=== PATIENT | female | born 1985 | race Caucasian/White ===

== ENCOUNTER → 2018-06-11 | Outpatient (CLI) | payer OTHER ==
[2018-06-08 15:38] VITALS: BMI 22.4
[2018-06-11 12:00] VITALS: BP 115/60; PULSE 53; RESP 16
--- NOTE | 2018-06-12 09:53 | P.PAINCN ---
History of Present Illness - Reason for Consult Consult date: 06/11/18 - History of Present Illness This is a 33 years old female with a chronic history of severe neck pain and headache, started 7 years ago, she denies any initiating event, and she reported the intensity of the headache increases significantly over the last 1 year, there is no specific triggering factors to initiate the headache, but there is no specific time of the day to trigger the headache, the headache associated with nausea and dizziness, patient diagnosed with occipital neuralgia and she was referred by Dr. Plasencia , to have occipital nerve block, patient currently on multiple medications for migraine headache, Imitrex, Fioricet ,inderal and magnesium oxide, and she continues to have frequent episodes of headache, she denies any motor or sensory deficit, she denies any fever or night sweats Past Medical History Additional Past Medical History / Comment(s): miograines, high blood pressure during 2 pregancies, occipital headaches, History of Any Multi-Drug Resistant Organisms: None Reported Past Surgical History: No Surgical Hx Reported Past Anesthesia/Blood Transfusion Reactions: Motion Sickness Additional Past Anesthesia/Blood Transfusion Reaction / Comm: never had anesthesia Past Psychological History: Anxiety, Depression Smoking Status: Current every day smoker Past Alcohol Use History: Occasional Additional Past Alcohol Use History / Comment(s): smokes 1 PPD for 15 yrs Past Drug Use History: None Reported - Past Family History Mother Family Medical History: Cancer Medications and Allergies Home Medications Medication Instructions Recorded Confirmed Type Butalb/Asprin/Caff 50-325-40Mg 1 - 2 cap PO Q6HR PRN 06/08/18 06/11/18 History [Fiorinal 50-325-40 MG] Cholecalciferol [Vitamin D3] 5,000 unit PO DAILY 06/08/18 06/11/18 History Citalopram Hydrobromide 10 mg PO DAILY 06/08/18 06/11/18 History [Citalopram HBr] Citalopram Hydrobromide 20 mg PO DAILY 06/08/18 06/11/18 History [Citalopram HBr] Cyanocobalamin (Vitamin B-12) 1,000 mcg PO DAILY 06/08/18 06/11/18 History [Vitamin B-12] Diazepam [Valium] 5 mg PO Q8HR PRN 06/08/18 06/11/18 History Magnesium Oxide [Mag-Ox] 250 mg PO BID 06/08/18 06/11/18 History Ondansetron HCl [Zofran] 4 mg PO Q8HR PRN 06/08/18 06/11/18 History Propranolol HCl [Inderal Xl] 80 mg PO BID 06/08/18 06/11/18 History SUMAtriptan SUCCINATE [Imitrex] 50 mg PO DIRECTED PRN 06/08/18 06/11/18 History Allergies Allergy/AdvReac Type Severity Reaction Status Date / Time No Known Allergies Allergy Verified 06/11/18 11:46 Physical Exam Vitals: Vital Signs Pulse Resp BP Pulse Ox 06/11/18 11:48 53 L 16 115/60 97 Social history : smoker , NO ETOH , NO Illegal drugs use . Review of Systems : 1- Constitutional : no chills , no fever , no night sweats , 2- Ears : no ear discharge , no change in hearing 3-Nose, Mouth ,Throat ; no bleeding gums, no sore throat , no epistaxis , 4-Cardiovascular : Denies chest pain, , no orthopnea , no palpitation 5-Respiratory : Denies cough , no dyspnea , no hemoptysis 6-Gastrointestinal :, no change in bowel habits , no coffee- ground emesis . 7-Genitourinary : No hematuria , no discharge , no incontinence, 8-Musculoskeletal : No gait dysfunction , report low back pain , 9- Neurological : no ataxia , no tremor , no sezure , 10-Psychatric , no suicidal ideation no hallucination 11- Endocrine : no cold intolerence , no polyuria , no polydypsia , 12-Hematologic : no easy bleeding , no easy brusing , 13-Allergic / immunology : no angioedema , no wheezing ,no allergic rhinitis 14-Integumentary : no brttle nails , no change hair / nails , no foot/leg ulcers . Physical Examinations : 1-Constitutional : Cooperative , not in acute distress . 2-HEENT : nech ; supple , no Lymphadenopathy , no Thyromegaly , :eyes , no icterus, no photophobia . ENT : , normal oropharynx , no Thrush 3- Respiratory : Chest clear to auscultations Bilaterally , no wheezing . 4- Cardiovascular : regular rate and rhythem , S1 , S2 , no S3 , no S4. 5- Gastrointestinal: abdomen soft no tenderness , no organomegally . 6- Genitourinary : Defferred . 7-Integumentary : No cellulitis , no ulcers , normal skin turgor , no cyanotic . 8- neurologic : Cranial nerve II to XII intact , no focal neurological deffecit 9-psychatric : alert , oriented X 3 , appropriate affect , intact judgment and insight . 10-Lymphatic : no Lymphadenopathy. 11- musculoskeltal: normal gait Cervical Spine motor stregnth in the deltoid and biceps, normal right side , normal Left side motor stregnth biceps and the wrist extensors normal right side ,normal left side . motor stregnth in the triceps muscle . normal Right side , normal Left side deep tendon reflexes normal at the biceps , normal at Brachioradialis , normal at triceps. positive cervical facet loading test . Severe tenderness over the occipital nerves bilaterally Lumber spine moter stegnth lower extremities ,thigh and legs 5/5 Right side , 5/5 Left side Results Comments: MRI of the brain reviewed Assessment and Plan Plan: Assessment and plan=1-bilateral occipital neuralgia. 2-cervical spondylosis ( clinical ), No computed tomography scan of MRI of the cervical spine available. she will be scheduled to have bilateral occipital nerve block, procedure risk and benefits and alternatives discussed with the patient she agreed with the preceding Time with Patient: Greater than 30 PQRS Measure Charge Sheet Measure #130: Documentation of Current Meds in Medical Chart: Patient's medications documented in chart Measure #226: Tobacco Use: Screen & Cessation Intervention: Pt screened for tobacco use AND intervention given Measure #111: Pneumonia Vaccination: Pneumococcal vaccine NOT administered or previously given Measure #47: Advance Care Plan: Advance care planning discussed & documented, pt chose/unable to give Measure #412: Opioid Treatment Agreement: No documentation of signed opioid treatment agreement Measure #408: Opioid Therapy Follow-up Evaluation: Patient had NO f/u eval minimum every 3 months during opioid therapy Measure #317: Preventitive Care & Scrn High Bld Press & F/U: Normal blood pressure, f/u not required Measure #128: Body Mass Index (BMI) Screening & Follow-up: BMI documented within normal parameters Measure #131: Pain Assessment & Follow-up: Pain positive & plan documented, Follow-up scheduled Measure #431: Unhealthy Alcohol Use Preventative Care & Scrn: Patient not identified as an unhealthy alcohol user PQRS Narrative: Smoking Status Current every day smoker Do You Want the Pneumonia No Vaccine AT THIS TIME? Blood Pressure 115/60 Pain Intensity [Bilateral 4 Posterior Neck] Scale Used Numeric (1 - 10) Hx Alcohol Use (MH) No Home Medications: Ambulatory Orders Butalb/Asprin/Caff 50-325-40Mg [Fiorinal 50-325-40 MG] 1 - 2 cap PO Q6HR PRN Cholecalciferol [Vitamin D3] 5,000 unit PO DAILY 06/08/18 Citalopram Hydrobromide [Citalopram HBr] 10 mg PO DAILY 06/08/18 Citalopram Hydrobromide [Citalopram HBr] 20 mg PO DAILY 06/08/18 Cyanocobalamin (Vitamin B-12) [Vitamin B-12] 1,000 mcg PO DAILY 06/08/18 Diazepam [Valium] 5 mg PO Q8HR PRN 06/08/18 Magnesium Oxide [Mag-Ox] 250 mg PO BID 06/08/18 Ondansetron HCl [Zofran] 4 mg PO Q8HR PRN 06/08/18 Propranolol HCl [Inderal Xl] 80 mg PO BID 06/08/18 SUMAtriptan SUCCINATE [Imitrex] 50 mg PO DIRECTED PRN 06/08/18
== END | disposition home or self-care (01) ==
LOC: PNWHC3 11:33
PROVIDERS: ATTEND Specialist
DX: G89.29 Other chronic pain (principal); M54.2 Cervicalgia; R51 Headache; M54.81 Occipital neuralgia; M47.812 Spondylosis without myelopathy or radiculopathy, cervical region; F41.9 Anxiety disorder, unspecified; F32.9 Major depressive disorder, single episode, unspecified; F17.210 Nicotine dependence, cigarettes, uncomplicated; Z79.82 Long term (current) use of aspirin; Z79.899 Other long term (current) drug therapy; Z71.6 Tobacco abuse counseling
CPT/HCPCS: 99211

== ENCOUNTER → 2018-06-29 | Day surgery (SDC) | payer OTHER ==
[2018-06-24 09:23] VITALS: BMI 22.3
[~2018-06-29] MED LIST: SODIUM CHLORIDE 0.9% 500 ML 500 ML IV ONE
[2018-06-29 09:40] VITALS: RESP 18; TEMP 98.4
--- NOTE | 2018-06-29 10:35 | P.PCN ---
Date of Procedure: 06/29/18 Procedure(s) Performed: Pre-operative diagnosis: 1- Bilateral occipital neuralgea Post Operative Diagnosis 1- Bilateral occipital neuralgea Procedure: 1- Bilateral occipital nerve block under ultrasound ANESTHESIA: Conscious sedation with Versed 2mg EBL: none PROCEDURE INDICATION: The patient with neck pain and headache secondary to occipital neuralgea unresponsive to conservative treatments. PROCEDURE DESCRIPTION / TECHNIQUE: The patient was seen and identified in the preoperative area. Risks, benefits, complications, and alternatives were discussed with the patient, the patient agreed to proceed with the procedure and signed the consent. IV was started. Vital signs remained stable throughout the procedure. Patient was taken to the OR and time out was completed. The patient was placed in the prone position on the procedure table. A pillow was placed under the patients chest to increase the cervical interlaminar space. The cervical area and right occiptial area were prepped with alcohol swab. Critical pause was taken. Vital signs were closely monitored during the procedure. Conscious sedation was used during the procedure to decrease patients anxiety. Ultrasound was used and the occipital artery was visualized exiting the skull about 2-3 cm lateral and 2cm inferior to the occipital protuberance, Then after negative aspiration, a 25g needed was introduced under ultrasound, negative aspiration confirmed and then 3 ml of the block solution containing 2.5 ml of PF Bupivacaine 0.5% and dexamethasone 5mg mg was injected. Needle was withdrawn intact. Then the same procedure was repeated on the left side with same medications as the right side. Patient tolerated procedure well. No acute complications.
[2018-06-29 11:08] VITALS: BP 112/72; PULSE 58
== END ==
LOC: ORPAIN 09:14
PROVIDERS: ATTEND Hospitalist
DX: M54.81 Occipital neuralgia (principal)
CPT/HCPCS: 64405; J2250; J1100; 99152

== ENCOUNTER → 2018-10-27 | Outpatient (CLI) | payer OTHER ==
[2018-10-27 12:02] VITALS: BP 125/71; PULSE 55; RESP 18; TEMP 98.1
--- NOTE | 2018-10-28 08:50 | P.PAINPG ---
Subjective Progress Note Date: 10/28/18 This is a 33 years old female with a chronic history of severe neck pain and headache, started 7 years ago, she denies any initiating event, and she reported the intensity of the headache increases significantly over the last 1 year, there is no specific triggering factors to initiate the headache, but there is no specific time of the day to trigger the headache, the headache associated with nausea and dizziness, patient diagnosed with occipital neuralgia and she was referred by Dr. Plasencia , to have occipital nerve block, patient currently on multiple medications for migraine headache, Imitrex, Fioricet ,inderal and magnesium oxide, and she continues to have frequent episodes of headache, she denies any motor or sensory deficit, she denies any fever or night sweats, she is diagnosed with occipital neuralgia and cervical spondylosis, previously we have done occipital nerve blocks bilaterally, she'll get short-term benefit from it, and she is here for follow-up visit and reevaluation after the procedure - Physical Examinations : -Constitutional : Cooperative , not in acute distress . -HEENT : nech ; supple , no Lymphadenopathy , no Thyromegaly , :eyes , no icterus, no photophobia . - musculoskeltal: normal gait Cervical Spine motor stregnth in the deltoid and biceps, normal right side , normal Left side motor stregnth biceps and the wrist extensors normal right side ,normal left side . motor stregnth in the triceps muscle . normal Right side , normal Left side deep tendon reflexes normal at the biceps , normal at Brachioradialis , normal at triceps. positive cervical facet loading test . Severe tenderness over the occipital nerves bilaterally Lumber spine moter stegnth lower extremities ,thigh and legs 5/5 Right side , 5/5 Left side Results Comments: MRI of the brain reviewed Assessment and plan=1-bilateral occipital neuralgia. 2-cervical spondylosis ( clinical ), No computed tomography scan of MRI of the cervical spine available. Patient benefited from bilateral occipital nerve block we will repeat the block, and also we will order MRI of the cervical spine In the future we can consider doing bilateral medial branch block at C2, C3 , and third occipital nerve block , and possible radiofrequency ablation - PQRS measures = - Patient's medications are documented in the chart. -Tobacco use is positive ,and counseling.Given. -Patient's has not received pneumococcal vaccine. -Advanced care planning discussed, patient not eligible. -Opiate contract not signed. -Pain positive and follow-up visit/procedure is scheduled. -Patient's blood pressure measured [ 125/71 ] , and documented in the record ,and patient will follow up with the primary care. -Patient's weight was measured and body mass index [ 22.3 ],within the normal limits and counseling was done. and patient instructed to follow-up with the primary care physician. -Patient was not identified as an unhealthy alcohol user Objective - Vital Signs Vital signs: Vital Signs Temp 98.1 F 10/27/18 11:56 Pulse 55 L 10/27/18 11:56 Resp 18 10/27/18 11:56 BP 125/71 10/27/18 11:56 Pulse Ox Intake & Output 10/27/18 10/28/18 10/28/18 18:59 06:59 18:59 Weight 58.967 kg PQRS Measure Charge Sheet Measure #130: Documentation of Current Meds in Medical Chart: Patient's medications documented in chart Measure #226: Tobacco Use: Screen & Cessation Intervention: Pt screened for tobacco use AND intervention given Measure #111: Pneumonia Vaccination: Pneumococcal vaccine NOT administered or previously given Measure #47: Advance Care Plan: Advance care planning discussed & documented, pt chose/unable to give Measure #412: Opioid Treatment Agreement: No documentation of signed opioid treatment agreement Measure #408: Opioid Therapy Follow-up Evaluation: Patient had NO f/u eval minimum every 3 months during opioid therapy Measure #317: Preventitive Care & Scrn High Bld Press & F/U: Normal blood pressure, f/u not required Measure #128: Body Mass Index (BMI) Screening & Follow-up: BMI documented within normal parameters Measure #131: Pain Assessment & Follow-up: Pain positive & plan documented Measure #431: Unhealthy Alcohol Use Preventative Care & Scrn: Patient not identified as an unhealthy alcohol user PQRS Narrative: Smoking Status Current every day smoker Do You Want the Pneumonia No Vaccine AT THIS TIME? Blood Pressure 125/71 Pain Intensity [Head] 4 Hx Alcohol Use (MH) No Home Medications: Ambulatory Orders Butalb/Asprin/Caff 50-325-40Mg [Fiorinal 50-325-40 MG] 1 - 2 cap PO Q6HR PRN Cholecalciferol [Vitamin D3] 5,000 unit PO DAILY 06/08/18 Citalopram Hydrobromide [Citalopram HBr] 10 mg PO DAILY 06/08/18 Citalopram Hydrobromide [Citalopram HBr] 20 mg PO DAILY 06/08/18 Cyanocobalamin (Vitamin B-12) [Vitamin B-12] 1,000 mcg PO DAILY 06/08/18 Magnesium Oxide [Mag-Ox] 250 mg PO BID 06/08/18 Ondansetron HCl [Zofran] 4 mg PO Q8HR PRN 06/08/18 Propranolol HCl [Inderal Xl] 80 mg PO BID 06/08/18 SUMAtriptan SUCCINATE [Imitrex] 50 mg PO DIRECTED PRN 06/08/18 Controlled Substance Measures - Controlled Substance Measures Is patient prescribed a controlled substance at discharge?: No
== END | disposition home or self-care (01) ==
LOC: PNWHC3 11:38
PROVIDERS: ATTEND Specialist
DX: G89.29 Other chronic pain (principal); M47.812 Spondylosis without myelopathy or radiculopathy, cervical region; M54.81 Occipital neuralgia; F17.200 Nicotine dependence, unspecified, uncomplicated; Z79.899 Other long term (current) drug therapy; Z79.82 Long term (current) use of aspirin
CPT/HCPCS: 99211

== ENCOUNTER 2018-11-04 06:26 | Day surgery (SDC) | payer OTHER ==
[2018-10-30 10:51] VITALS: BMI 22.3
[~2018-11-04 06:26] MED LIST changes: -SODIUM CHLORIDE 0.9% 500 ML 500 ML IV ONE; +SODIUM CHLORIDE 0.9% 500 ML 500 ML IV SCH
[2018-11-04 06:58] VITALS: RESP 16; TEMP 98.8
[2018-11-04] MEDS ORDERED: LIDOCAINE 1% 20 ML VIAL (10MG/ML) FOR IV START INTRADERMA ONE (07:03)
[2018-11-04] MEDS ORDERED: LACTATED RINGERS 1,000 ML IV ONE (07:03)
--- NOTE | 2018-11-04 08:01 | P.PCN ---
Date of Procedure: 11/04/18 Procedure(s) Performed: Preoperative diagnoses= 1-Bilateral occipital neuralgia. 2-cervical spondyl osis Postoperative diagnoses= same as preoperative diagnosis. Procedure= Bilateral Greater occipital nerve block Anesthesia= none. Estimated blood loss=minimal. Procedure indication= the patient had a history of severe chronic neck pain ,and headache, diagnosed with occipital neuralgia exam was positive for severe tenderness over the occipital nerve bilaterally, she will be a good candidate o ccipital nerve block, patient failed conservative management Procedure description= the patient was seen and identified in the preoperative holding area, risks and benefits and alternative of the procedure and possible complications discussed with the patient, and he agreed with the preceding, patient signed the consent, an IV was started, and vital signs were monitored and were stable throughout the procedure, patient was placed in the sitting position or table and the neck area was prepped and draped with a sterile fashion, vital signs were closely monitored during the procedure, 25-gauge needle advanced 1 inch lateral to the occipital protuberance on the right side, at the location of the right occipital nerve , then after negative aspiration for heme and CSF and there was no paresthesia during the injection, 6 ml of Robivacaine 0.5% and 40 mg of Depo-Medrol injected after negative aspiration, the needle removed, and the entire same procedure was repeated for the left Greater occipital nerve. Patient tolerated the procedure well without any complication, The patient returned to supine position after the back was cleaned and a Band- Aid applied, the patient transported to recovery room in stable condition and he was monitored for 30 minutes before he was discharged home and then patient was reexamined before going home and patient was discharged in stable condition and patient will follow up with the pain clinic in a few weeks.
[2018-11-04] MEDS ORDERED: IV FLUID CONTINUATION 1,000 ML IV ONE ×2 (08:04)
[2018-11-04 08:09] VITALS: BP 114/74; PULSE 59
== END 2018-11-04 08:32 | disposition home or self-care (01) ==
LOC: ORPAIN 06:26
PROVIDERS: ATTEND Specialist
DX: M54.81 Occipital neuralgia (principal); M47.812 Spondylosis without myelopathy or radiculopathy, cervical region; G89.29 Other chronic pain
CPT/HCPCS: 81025; 64405; J1030

== ENCOUNTER → 2018-11-26 | Outpatient (CLI) | payer OTHER ==
[2018-11-26 12:23] VITALS: BP 120/84; PULSE 61; RESP 16
--- NOTE | 2018-11-26 12:50 | P.PAINPG ---
Subjective Progress Note Date: 11/26/18 Jovita is a 33-year-old female presents today with a chief complaint of neck pain and headaches. She has been treated in the past for occipital neuralgia. She had 2 occipital nerve blocks and reported that first one helped a second one did not help at all. She reports that she has pain going from her neck up into her head. She is unsure of her headaches causing her neck pain or neck pain is causing her headaches. She's had chronic migraines for many years and is on multiple medications. She sees Dr. Plasencia is a neurologist. Dr. Medrano had ordered an MRI of the brain in the past and Dr. Davila and ordered an MRI of the cervical spine which was completely normal. MRI of the brain shows some p ossible demyelinating spots which the patient does not believe was mentioned to her and does not believe was worked up any further by her neurologist. At this point she complains of neck pain sometimes going into her arms. She complains of subjective weakness in her arms and in her legs. She feels tired a lot. She reports that she does not have any bowel or bladder incontinence. She does not have any difficulty swallowing. She does occasionally have changes in her vision. She does smoke and smokes about pack a day. Niacin any other drug use. Objective - Vital Signs Vital signs: Vital Signs Temp Pulse 61 11/26/18 12:16 Resp 16 11/26/18 12:16 BP 120/84 11/26/18 12:16 Pulse Ox 95 11/26/18 12:16 Intake & Output 11/25/18 11/26/18 11/26/18 18:59 06:59 18:59 Weight 65.771 kg - Exam PHYSICAL EXAM: Constitutional: Awake and alert no distress Cardiovascular exam: Regular rate, no lower extremity edema, palpable pulses bilaterally Respiratory exam: No audible wheezing, no accessory muscle usage Abdominal exam: Soft nontender Muscular skeletal exam: - Cervical spine: Nontender to palpation bilaterally. Range of motion is not limited. Spurling is negative bilateral. Facet loading is negative bilaterally - Lumbar spine: Preserved lumbar lordosis. No changes in skin. Nontender palpation bilateral. Patient has full range of motion in flexion and extension as well as lateral sidebending. Straight leg raise is negative. Neuro exam: Normal sensation bilateral upper and lower extremities. Deep tendon reflexes are 2+ bilaterally. Schilling's is negative Psychiatric exam: Cooperative, good insight Assessment and Plan Assessment: #1 migraines #2 occipital neuralgia Plan: At this point I feel we will have much to offer as the MRI of the cervical spine is normal. We've tried to occipital nerve blocks without much success. I have advised her follow-up with Dr. Plasencia regarding her brain MRI and see if they're interested in ruling out multiple sclerosis as a diagnosis for her weakness. Patient will call us as needed PQRS Measure Charge Sheet Measure #130: Documentation of Current Meds in Medical Chart: Patient's medications documented in chart Measure #226: Tobacco Use: Screen & Cessation Intervention: Pt screened for tobacco use AND intervention given Measure #111: Pneumonia Vaccination: Pneumococcal vaccine NOT administered or previously given Measure #47: Advance Care Plan: Advance care planning discussed & documented, plan or surrogate given Measure #412: Opioid Treatment Agreement: No documentation of signed opioid treatment agreement Measure #408: Opioid Therapy Follow-up Evaluation: Patient had NO f/u eval minimum every 3 months during opioid therapy Measure #317: Preventitive Care & Scrn High Bld Press & F/U: Normal blood p ressure, f/u not required Measure #128: Body Mass Index (BMI) Screening & Follow-up: BMI documented within normal parameters Measure #131: Pain Assessment & Follow-up: Pain positive & plan documented, Follow-up PRN Measure #431: Unhealthy Alcohol Use Preventative Care & Scrn: Patient not identified as an unhealthy alcohol user PQRS Narrative: Smoking Status Current every day smoker Do You Want the Pneumonia No Vaccine AT THIS TIME? Blood Pressure 120/84 Pain Intensity [Bilateral 3 Posterior Neck] Scale Used Numeric (1 - 10) Hx Alcohol Use (MH) No Home Medications: Ambulatory Orders Butalb/Asprin/Caff 50-325-40Mg [Fiorinal 50-325-40 MG] 1 - 2 cap PO Q6HR PRN 06/08/18 Cholecalciferol [Vitamin D3] 5,000 unit PO DAILY 06/08/18 Citalopram Hydrobromide [Citalopram HBr] 10 mg PO DAILY 06/08/18 Citalopram Hydrobromide [Citalopram HBr] 20 mg PO DAILY 06/08/18 Cyanocobalamin (Vitamin B-12) [Vitamin B-12] 1,000 mcg PO DAILY 06/08/18 Magnesium Oxide [Mag-Ox] 250 mg PO BID 06/08/18 Ondansetron HCl [Zofran] 4 mg PO Q8HR PRN 06/08/18 Propranolol HCl [Inderal Xl] 80 mg PO BID 06/08/18 SUMAtriptan SUCCINATE [Imitrex] 50 mg PO DIRECTED PRN 06/08/18 Butalb/Asprin/Caff 50-325-40Mg [Fiorinal 50-325-40 MG] 1 tab PO Q6HR PRN 11/26/18 OXcarbazepine [Trileptal] 1 tab PO HS 11/26/18 Controlled Substance Measures - Controlled Substance Measures Is patient prescribed a controlled substance at discharge?: No
== END ==
LOC: PNWHC3 12:11
PROVIDERS: ATTEND Hospitalist
DX: G43.909 Migraine, unspecified, not intractable, without status migrainosus (principal); M54.81 Occipital neuralgia; F17.200 Nicotine dependence, unspecified, uncomplicated; Z79.899 Other long term (current) drug therapy
CPT/HCPCS: 99211

== ENCOUNTER 2018-12-17 08:31 | Day surgery (SDC) | payer OTHER ==
[~2018-12-17 08:31] MED LIST changes: +LACTATED RINGERS 1,000 ML IV SCH; -SODIUM CHLORIDE 0.9% 500 ML 500 ML IV SCH
[2018-12-17 09:07] VITALS: TEMP 97.7
[2018-12-17] MEDS ORDERED: LIDOCAINE 1% 20 ML VIAL (10MG/ML) FOR IV START INTRADERMA ONE (09:19)
--- NOTE | 2018-12-17 10:07 | P.PCN ---
Date of Procedure: 12/17/18 Procedure(s) Performed: Preoperative diagnosis: Multiple sclerosis Post operative diagnoses: Multiple sclerosis Anesthesia= moderate sedation with Versed 2 mg and fentanyl 100 g,and local infiltration with lidocaine 1% 2 mL. Condition: stable Complication: none. Description of the procedure procedure risk and benefits discussed with the patient and family, consent signed. Sedation was given to decrease patient exactly ,Patient and the procedure area placed in sitting position back prepped with chlorhexidine 3 times been local infiltration of the skin and subcutaneous tissue with lidocaine 1% 2 mL for skin and subcu interstitial frustrations at L4 5 levels then 22-gauge Quincke-type needle advanced slowly at L4- 5 interlaminar space there was positive cerebrospinal fluid which was clear, no heme, no paresthesia ,total of 8 ML of clear cerebrospinal fluid collected in 4 different tubes 2 mL in each, then the needle removed and a Band-Aid applied and patient tolerated the procedure well without any complications.
[2018-12-17] MEDS ORDERED: IV FLUID CONTINUATION 1,000 ML IV ONE (10:12)
[2018-12-17 10:29] LABS: T4, Free (Free Thyroxine) 1.13 ng/dL (0.78-2.19)
[2018-12-17 10:31] VITALS: BP 110/71; PULSE 59; RESP 98
[2018-12-17 15:24] LABS: Glucose,CSF 49 mg/dL (40-70); Total Protein,CSF 39 mg/dL (12-60)
[2018-12-17 16:10] LABS: Rheumatoid Factor <4 IU/mL (0-15)
[2018-12-17 17:07] LABS: Anti-DNA, DS unit <1.0 IU/mL; DNA Double-Stranded NEGATIVE (NEGATIVE); RNP <0.2 AI
[2018-12-17 17:58] LABS: Appearance,CSF Clear; CSF Tube Number 4
[2018-12-17 17:59] LABS: CSF Tube Volume 2; Nucleated Cells, CSF 0 u/L (0-5); Red Blood Cell,CSF 0 u/L (0-10)
[2018-12-18 09:16] LABS: Lyme IgG/IgM 0.08 Index
[2018-12-18 10:56] LABS: VDRL, Qualitative CSF Nonreactive (Nonreactive)
[2018-12-18 12:58] LABS: APTT 36 Sec(s) (<43); Dilute Russell Viper Venom 37 Sec(s) (<44)
[2018-12-18 13:15] LABS: IgG - CSF 1.9 mg/dL (0.0 - 3.4); IgG/Albumin Index (CSF) 0.53 (0.00 - 0.77); Immunoglobulin G 943 mg/dL (700 - 1600)
== END 2018-12-17 10:45 | disposition home or self-care (01) ==
LOC: ORPAIN 08:31
PROVIDERS: ATTEND Specialist
DX: R20.2 Paresthesia of skin (principal); M54.81 Occipital neuralgia; R83.6 Abnormal cytological findings in cerebrospinal fluid
CPT/HCPCS: 81025; 86592 ×2; 86235 ×3; 84439; 88108; 84157; 82945; 82040; 82042; 82784; 83916; 83873; 84443; 84450; 84460; 85730; 86431; 85613; 89050; 86618; 86038; 86225; 87801; 62270; J2250; J3010; 99152

== ENCOUNTER → 2023-01-21 | Outpatient (CLI) | payer OTHER | END | disposition home or self-care (01) | LOC: LABWHC1 08:53 | PROVIDERS: ATTEND Nurse Practitioner Family | DX: R90.82 White matter disease, unspecified (principal) | CPT/HCPCS: 36415; 82040; 82042; 82784; 83873; 83916 ==

== ENCOUNTER 2024-02-20 07:15 | Day surgery (SDC) | payer OTHER ==
[2024-02-18 14:38] VITALS: BMI 22.3
[2024-02-20] MEDS: IV FLUID CONTINUATION 1,000 ML IV ONE (07:38)
[2024-02-20] MEDS: LACTATED RINGERS 1,000 ML IV SCH (07:51)
[2024-02-20 07:54] VITALS: TEMP 98
[2024-02-20] MEDS ORDERED: PROPOFOL 10 MG/ML 20 ML VIAL IV ONE (08:09)
--- NOTE | 2024-02-20 08:34 | P.PCN ---
Date of Procedure: 02/20/24 Procedure(s) Performed: Brief history: Patient is a pleasant 38-year-old white female scheduled for an elective upper endoscopy as well as colonoscopy as a part of evaluation of intermittent episodes of nausea vomiting and change in bowel habits for the last several months duration Procedure performed: Esophagogastroduodenoscopy with biopsy Colonoscopy Preoperative diagnosis: Intermittent nausea vomiting Change in bowel habits Anesthesia: MAC Procedure: After informed consent was obtained from the patient was brought into the endoscopy unit and IV sedation was administered by anesthesia under continuous monitoring. Initially upper endoscopy was done. The Olympus GF 160 video endoscope was inserted inserted into the mouth and esophagus intubated without any difficulty and was gradually advanced into the stomach and duodenum and carefully examined. The bulb and second part of the duodenum appeared normal. Biopsies were done from the duodenum rule out celiac disease. The scope was then withdrawn into the stomach adequately insufflated with air and upon careful examination the antrum had patchy areas of erythema consistent with gastritis and biopsies were done from this area mucosa of the body, cardia and fundus appeared normal. The scope was then withdrawn into the esophagus. The GE junction was located at 40 cm to the incisors. It appeared regular with no erythema erosions or ulcerations. Rest of the esophagus appeared normal. Patient tolerated the procedure well. At this time the patient continued to remain sedation. Initial digital rectal examination was normal. Olympus CF 160 video colonoscope was then inserted into the rectum and gradually advanced to the cecum without any difficulty. Careful examination was performed as the scope was gradually being withdrawn. The prep was excellent. The cecum, ascending colon, transverse colon, descending colon, sigmoid colon and rectum appeared normal. Retroflexion was performed in the rectum and no lesions were noted. Patient tolerated the procedure well. Impression: 1. Upper endoscopy revealed mild antral gastritis but no evidence of esophagitis or peptic ulcer disease 2. Colonoscopy was within normal limits with no evidence of colorectal neoplasia Recommendations: Findings of this examination were discussed with the patient as well as her family. She was advised to follow with the biopsy results. Follow-up in the office in 2 to 3 weeks. Recommended repeat screening colonoscopy in 10 years.
[2024-02-20 08:58] VITALS: BP 123/80; PULSE 80; RESP 18
== END 2024-02-20 09:26 | disposition home or self-care (01) ==
LOC: ORWHC2ENDO 07:15
PROVIDERS: ATTEND Internal Medicine Gastroenterology
DX: K29.50 Unspecified chronic gastritis without bleeding (principal); D72.820 Lymphocytosis (symptomatic); R19.4 Change in bowel habit; K21.9 Gastro-esophageal reflux disease without esophagitis; F32.A Depression, unspecified; I10 Essential (primary) hypertension; F12.90 Cannabis use, unspecified, uncomplicated; Z79.899 Other long term (current) drug therapy; Z90.710 Acquired absence of both cervix and uterus
CPT/HCPCS: 88305; 45378; 43239; J2704